=== PATIENT | female | born 1945 | race Caucasian/White ===

== ENCOUNTER 2017-02-27 08:15 | Inpatient (IN) | payer OTHER ==
[~2017-02-27] VITALS: Ht 157.5 cm; Wt 64.9 kg
[~2017-02-27 08:15] MED LIST: OMEPRAZOLE D/R20 M1 PO
[2017-02-27 09:30] LABS: CALCIUM 9.2 mg/dL (8.5-10.1); CARBON DIOXIDE 25.2 mmol/L (21-32); CREATININE SERUM 1.2 mg/dL (0.6-1.0); POTASSIUM SERUM 3.9 mmol/L (3.5-5.1)
[2017-02-27 09:31] LABS: BASOPHIL % 0.4 % (0-2); PLATELET COUNT 245 x10^3mcL (130-400); RED CELL DISTRIBUTION WIDTH 12.1 % (11.5-14.5)
[2017-02-27 09:34] LABS: ALBUMIN 3.7 g/dL (3.4-5.0); BILIRUBIN TOTAL 0.37 mg/dL (0.20-1.00); TOTAL PROTEIN, SERUM 7.2 g/dL (6.4-8.2)
[2017-02-27] MEDS ORDERED: NATURAL IRON65 MG PO (10:09)
[2017-02-27] MEDS ORDERED: MULTI-VITAMINS1 TAB PO (10:09)
[2017-02-27] MEDS ORDERED: PANTOPRAZOLE SO40 M1 PO (10:09)
[2017-02-27 12:17] LABS: T3 TOTAL 0.83 ng/mL
[2017-02-27 12:50] LABS: UA SPECIFIC GRAVITY >=1.030 (1.005-1.035); microscopic required? YES; urine erythrocyte 2+ (NEGATIVE)
[2017-02-27 13:15] LABS: FREE T4 1.29 ng/dL (0.76-1.46); FREE THYROXINE INDEX 3.4 ug/dL (1.4-4.5); T4(THYROXINE) 9.8 ug/dL (4.7-13.3)
[2017-02-27 13:21] VITALS: BP 119/44
[2017-02-27 14:09] VITALS: BP 139/95
[2017-02-27 15:25] LABS: MAGNESIUM 1.7 mg/dL (1.8-2.4); PHOSPHOROUS 3.3 mg/dL (2.5-4.9)
[2017-02-27 15:34] LABS: CHOLESTEROL/HDL RATIO 2.2
[2017-02-27 17:28] VITALS: BP 107/56
[2017-02-27 22:26] VITALS: BP 139/60
[2017-02-28 06:40] VITALS: BP 107/61
[2017-02-28 07:08] LABS: CALCIUM 8.8 mg/dL (8.5-10.1); CARBON DIOXIDE 26.2 mmol/L (21-32); CREATININE SERUM 1.1 mg/dL (0.6-1.0); MAGNESIUM 1.7 mg/dL (1.8-2.4); PHOSPHOROUS 3.2 mg/dL (2.5-4.9); POTASSIUM SERUM 4.2 mmol/L (3.5-5.1)
[2017-02-28 07:35] LABS: PLATELET COUNT 219 x10^3mcL (130-400); RED CELL DISTRIBUTION WIDTH 12.6 % (11.5-14.5)
[2017-02-28 10:00] VITALS: BP 111/61
[2017-02-28 10:32] LABS: BAND NEUTROPHIL 21 % (0-10); SEGMENTED NEUTROPHILS 40 % (37-75)
[2017-02-28 10:33] LABS: MONOCYTE 20 % (0-7); rbc morphology (normal/abnorm) NORMAL (NORMAL)
[2017-02-28 10:34] LABS: PLATELET MORPHOLOGY PLATELETS NORMAL
[2017-02-28 14:53] VITALS: BP 131/66
[2017-02-28] MEDS ORDERED: IMO2 PO (15:52)
[2017-02-28 16:51] VITALS: BP 131/66
[2017-02-28 18:13] VITALS: BP 107/56
== END 2017-02-28 18:20 | disposition home or self-care (01) | DRG 393 ==
LOC: ED 08:15 → DU 10:11
PROVIDERS: Emergency Medicine; ADMIT Family Medicine
DX: K64.8 Other hemorrhoids (principal); N17.0 Acute kidney failure with tubular necrosis; K21.9 Gastro-esophageal reflux disease without esophagitis; E83.42 Hypomagnesemia; K57.90 Diverticulosis of intestine, part unspecified, without perforation or abscess without bleeding; Z90.49 Acquired absence of other specified parts of digestive tract; Z90.710 Acquired absence of both cervix and uterus; Z83.3 Family history of diabetes mellitus
CPT/HCPCS: 83880; 84439; G0480; J2405; J3475; J3490; J7030; Q0092

== ENCOUNTER → 2017-11-13 | Outpatient (CLI) | payer OTHER ==
[~2017-11-13] MED LIST changes: +IMO2 PO; +MULTI-VITAMINS1 TAB PO; +NATURAL IRON65 MG PO; +PANTOPRAZOLE SO40 M1 PO
== END | disposition home or self-care (01) ==
LOC: MA 08:29
PROC: BH02ZZZ Plain Radiography of Bilateral Breasts (ICD-10-PCS; principal; 2017-11-13)
DX: Z12.31 Encounter for screening mammogram for malignant neoplasm of breast (principal)
CPT/HCPCS: 77067

== ENCOUNTER 2020-07-27 18:09 | Emergency (ER) | payer OTHER ==
[~2020-07-27] VITALS: Ht 157.5 cm; Wt 78.9 kg
[2020-07-27 18:14] VITALS: Ht 157.5 cm; Wt 78.9 kg
[2020-07-27 23:13] VITALS: BP 135/64
== END 2020-07-27 23:13 | disposition home or self-care (01) ==
LOC: ED 18:09
DX: S52.502A Unspecified fracture of the lower end of left radius, initial encounter for closed fracture (principal); S01.112A Laceration without foreign body of left eyelid and periocular area, initial encounter; S20.212A Contusion of left front wall of thorax, initial encounter; W01.0XXA Fall on same level from slipping, tripping and stumbling without subsequent striking against object, initial encounter; Y93.89 Activity, other specified; Y92.89 Other specified places as the place of occurrence of the external cause; Y99.8 Other external cause status
CPT/HCPCS: 90715; J2001; J2270; J2405; Q0092